=== PATIENT | male | born 1975 | race Caucasian/White ===

== ENCOUNTER 2016-07-27 12:42 | Emergency (ER) | payer OTHER ==
[~2016-07-27] VITALS: Ht 182.9 cm; Wt 110.0 kg
[~2016-07-27 12:42] MED LIST: ADVIL200 MG PO; CEFUROXIME500 MG PO; COUMADIN5 MG PO; FLOVENT 11120 INHALA IH; LEXAPRO20 MG PO; LOVENOX100 MG/1 M SC; MOBIC7.5 MG PO; NICOTINE PATCH1 EAC2 TD; PANTOPRAZOLE SO40 MG PO; PREDNISONE10 MG PO; SPIRIVA RESPIMAT4 GM IH; TYLENOL EXTRA500 MG PO; VENTOLIN HFA18 GM IH; VICODIN,LORT1 TABLET PO
[2016-07-27 13:22] LABS: HEMATOCRIT 43.9 % (38.0-50.0); MCH 29.8 PG (29.0-34.0); MCHC 33.7 G/DL (30.0-36.0); MCV 88.5 FL (86-99); MEAN PLAT.VOLUME 11.2 uM^3 (9.0-12.4); PLATELET COUNT 208 K/uL (156-360); RBC DIS.WIDTH-CV 15.6 % (11.8-14.6); RBC DIS.WIDTH-SD 49.8 % (39-53); RED BLOOD COUNT 4.96 M/uL (4.00-5.50); WHITE BLOOD COUNT 13.6 K/uL (4.1-10.2)
[2016-07-27 13:35] LABS: CHLORIDE 105 mEq/L (99-109); SODIUM 138 mEq/L (136-147)
[2016-07-27 13:36] LABS: GLUCOSE 95 mg/dL (70-99)
[2016-07-27 13:37] LABS: PROTHROMBIN TIME 11.1 (9.2-11.2)
[2016-07-27 13:38] LABS: ANION GAP 9 MEQ/L (2-14)
[2016-07-27 13:40] LABS: GFR ESTIMATE (CALCULATED) > 59 mL/min/
[2016-07-27 13:41] LABS: UREA NITROGEN (BUN) 7 mg/dL (9-23)
[2016-07-27 13:43] LABS: TROP-I INTERPRETATION NEGATIVE; TROPONIN-I < 0.01 ng/mL (0.0-0.30)
[2016-07-27 13:58] LABS: INTER. NORMALIZED RATIO 1.1
[2016-07-27] MEDS ORDERED: LORTAB 5-325 M1 EACH PO (15:31)
[2016-07-27] MEDS ORDERED: AUGMENTIN500 MG PO (15:31)
[2016-07-27 15:58] VITALS: BP 158/93
== END 2016-07-27 16:19 | disposition home or self-care (01) ==
LOC: EME 12:42
DX: R09.1 Pleurisy (principal); R07.89 Other chest pain; K21.9 Gastro-esophageal reflux disease without esophagitis; F17.200 Nicotine dependence, unspecified, uncomplicated
CPT/HCPCS: 71020; 71275; 80048; 84484; 85027; 85610; 93005; 99281; 99284

== ENCOUNTER 2016-08-01 06:48 | Observation (INO) | payer OTHER ==
[~2016-08-01] VITALS: Ht 182.9 cm; Wt 107.8 kg
[~2016-08-01 06:48] MED LIST changes: +AUGMENTIN500 MG PO; +LORTAB 5-325 M1 EACH PO
[2016-08-01 08:07] LABS: HEMATOCRIT 41.5 % (38.0-50.0); MCH 29.6 PG (29.0-34.0); MCV 87.2 FL (86-99); MEAN PLAT.VOLUME 10.8 uM^3 (9.0-12.4); PLATELET COUNT 260 K/uL (156-360); RBC DIS.WIDTH-CV 15.1 % (11.8-14.6); RBC DIS.WIDTH-SD 47.7 % (39-53); RED BLOOD COUNT 4.76 M/uL (4.00-5.50); WHITE BLOOD COUNT 12.3 K/uL (4.1-10.2)
[2016-08-01 08:58] LABS: ANION GAP 7 MEQ/L (2-14); CHLORIDE 106 MEQ/L (99-109); POTASSIUM 4.2 MEQ/L (3.7-5.4); SAMPLE HEMOLYSIS CHECK 0; SAMPLE ICTERIC CHECK 0; SAMPLE LIPEMIA CHECK 0; SODIUM 138 MEQ/L (136-147)
[2016-08-01 09:03] LABS: GFR ESTIMATE (CALCULATED) > 59 mL/min/; GLUCOSE 82 mg/dL (70-99); UREA NITROGEN (BUN) 6 mg/dL (9-23)
[2016-08-01 09:14] LABS: TROP-I INTERPRETATION NEGATIVE; TROPONIN-I < 0.01 ng/mL (0.0-0.30)
[2016-08-01 09:15] LABS: D-DIMER ELISA 1.87 mg/L FEU (< 0.57); INTER. NORMALIZED RATIO 1.5; PROTHROMBIN TIME 15.4 (9.2-11.2)
[2016-08-01] MEDS ORDERED: AUGMENTIN500 MG PO (11:55)
[2016-08-01 12:52] LABS: CHLORIDE 106 mEq/L (99-109); SODIUM 140 mEq/L (136-147)
[2016-08-01 12:54] LABS: GLUCOSE 90 mg/dL (70-99)
[2016-08-01 12:55] LABS: ANION GAP 11 MEQ/L (2-14)
[2016-08-01 12:56] LABS: TOTAL BILIRUBIN 0.5 mg/dL (0.0-1.0)
[2016-08-01 12:58] LABS: ALKALINE PHOSPHATASE 100 IU/L (3-129); GFR ESTIMATE (CALCULATED) > 59 mL/min/
[2016-08-01 12:59] LABS: UREA NITROGEN (BUN) 7 mg/dL (9-23)
[2016-08-01 17:34] VITALS: BP 137/84
[2016-08-01 19:15] VITALS: BP 164/80
[2016-08-01] MEDS ORDERED: VENTOLIN HFA18 GM IH (19:31)
[2016-08-02 00:09] VITALS: BP 149/82
[2016-08-02 03:45] VITALS: BP 135/71
[2016-08-02 08:06] VITALS: BP 158/67
[2016-08-02 12:42] VITALS: BP 138/86
[2016-08-02 12:50] LABS: INTER. NORMALIZED RATIO 1.3; PROTHROMBIN TIME 13.4 (9.2-11.2); PTT 49.8 (25-32)
[2016-08-02] MEDS ORDERED: XARELTO15 MG PO (13:30)
[2016-08-02] MEDS ORDERED: TRAMADOL HCL50 MG PO (13:31)
== END 2016-08-02 15:48 | disposition home or self-care (01) ==
LOC: EME 06:48 → EDOF 11:47 → 5WEST 17:06
PROVIDERS: Emergency Medicine; Hospitalist; Internal Medicine
DX: I26.99 Other pulmonary embolism without acute cor pulmonale (principal); J96.91 Respiratory failure, unspecified with hypoxia; Z86.711 Personal history of pulmonary embolism; Z86.718 Personal history of other venous thrombosis and embolism; D68.59 Other primary thrombophilia; J44.0 Chronic obstructive pulmonary disease with (acute) lower respiratory infection; J20.9 Acute bronchitis, unspecified; Z98.818 Other dental procedure status; Z79.01 Long term (current) use of anticoagulants; F17.210 Nicotine dependence, cigarettes, uncomplicated; Z88.8 Allergy status to other drugs, medicaments and biological substances
CPT/HCPCS: 71010; 71275; 80048; 80053; 84484; 85027; 85379; 85610; 85730; 93005; 93306; 94640; 94640 76; 94799; 99202; G0378